=== PATIENT | female | born 1925 | race Caucasian/White ===

== ENCOUNTER 2016-05-20 15:32 | Emergency (ER) | payer MEDICARE ==
[~2016-05-20 15:32] MED LIST: *MAMMOGRAM; *WHEELCHAI; /ALEN70TA; /AUGM875TA; /PANT40TA; ACTONEL PO; ADVICOR PO; ALPH0.156; ALPHAGAN; ASPI325T; ATOR40TA PO; AZOP0.2S OU; BACTRIMDS PO; CENT1TAB PO; CIPRO; COLA100C2; COLA100C2 PO; COMB0.2S OU; DIGO0.12 PO; DRIS50002 PO; ELIQ5TAB PO; FISH100049 PO; FLAG500T; FOSAMAX70 PO; FURO40TA2 PO; GLUCOSE TEST; HCTZ25 PO; HYDROD25 PO; ICAPCAP; ICAPS PO; KLORCON10 PO; LANCMIS; LASI20TA; LASIX20 PO; LATANOPROST 0.005%; LIPITOR PO; LIPITOR10 PO; LOPR50TA; LOPR50TA PO; LOPRESS100 PO; LOPRESS50 PO; LOTENSIN PO; LOTREL; LOTREL PO; LOVAZA PO; MIACALCIN; NEXIUM40 PO; PHENERGAN; PROM12SU; THERGRAN; TIMO0.5S; TIMO0.5S3; TIMOPTIC; TRAV04OPD OU; TUSSIONEX PO; TYLE325T5 PO; UROCIT K; UROCIT PO; VICO5TAB; XALATAN; ZANT150T; ZANT150T PO; ZANTAC150 PO; ZITHROM250 PO; ZOCO10TA; ZOCOR PO; [UNRECOGNIZED DRUG - CODE]; [UNRECOGNIZED DRUG - OTHER]; [UNRECOGNIZED DRUG - OTHER]; [UNRECOGNIZED DRUG - REMARK]; lovaza
[2016-05-20] MEDS ORDERED: MORPHINE 2 MG/ML 1ML SYRINGE As Ordered ONE (16:18)
[2016-05-20] MEDS ORDERED: ONDANSETRON 4 MG ORAL DISINTEGRATING TAB (S0181) As Ordered ONE (16:18)
[2016-05-20 17:02] LABS: BASO % 0.2 % (0.0-1.0); EOS % 0.4 % (0.0-3.0); LARGE UNSTAINED CELL # 0.3 K/mm3 (0.0-0.4); LARGE UNSTAINED CELL % 2.1 % (0.0-4.0); LYMPH # 0.6 K/mm3 (1.5-4.5); LYMPH % 4.9 % (24.0-44.0); MEAN CORPUSCULAR HEMOGLOBIN 28.6 pg (27.0-33.0); MEAN CORPUSCULAR HGB CONC 32.5 g/dl (32.0-36.5); MEAN CORPUSCULAR VOLUME 87.7 fl (80.0-96.0); MONO # 1.1 K/mm3 (0.0-0.8); MONO % 8.5 % (0.0-5.0); PLATELET COUNT, AUTOMATED 343 k/mm3 (150-450); RED CELL DISTRIBUTION WIDTH 12.7 % (11.5-14.5)
[2016-05-20 17:15] LABS: ALBUMIN 2.9 GM/DL (3.2-5.2); ALBUMIN/GLOBULIN RATIO 0.83 (1.00-1.93); ALKALINE PHOSPHATASE 184 U/L (45-117); ALT/SGPT 29 U/L (12-78); ANION GAP 10 MEQ/L (8-16); AST/SGOT 24 U/L (15-37); BILIRUBIN,DIRECT 0.3 MG/DL (0.0-0.2); BILIRUBIN,TOTAL 0.8 MG/DL (0.2-1.0); BLOOD UREA NITROGEN 17 MG/DL (7-18); CALCIUM LEVEL 10.4 MG/DL (8.8-10.2); CARBON DIOXIDE LEVEL 23 MEQ/L (21-32); CHLORIDE LEVEL 108 MEQ/L (98-107); CREATININE FOR GFR 0.71 MG/DL (0.55-1.02); GLOMERULAR FILTRATION RATE > 60.0 (>32); GLUCOSE, FASTING 140 MG/DL (83-110); POTASSIUM SERUM 4.2 MEQ/L (3.5-5.1); SODIUM LEVEL 141 MEQ/L (136-145); TOTAL PROTEIN 6.4 GM/DL (6.4-8.2); URIC ACID 5.9 MG/DL (2.6-6.0)
[2016-05-20] MEDS ORDERED: traMADol 50 MG TAB As Ordered ONE (17:33)
[2016-05-20 18:51] LABS: ERYTHROCYTE SEDIMENTATION RATE 66 mm/hr (0-42)
--- NOTE | 2016-05-20 19:10 | REPUSA ---
CLINICAL HISTORY: Hand pain. COMMENTS: The bones are diffusely osteopenic. Moderate to severe degenerative changes are present at all bilateral PIP and DIP joints. Severe soft tissue swelling is present adjacent to the second LEFT proximal and middle phalanx. Dest ructive changes are noted at the second LEFT PIP joint. This may represent osteomyelitis and septic arthritis. Clinical correlation is recommended. There is no evidence of acute fracture or dislocation. IMPRESSION: Severe soft tissue swelling is present adjacent to the second LEFT proximal and middle phalanx. Dest ructive changes are noted at the second LEFT PIP joint. This may represent osteomyelitis and septic arthritis. Clinical correlation is recommended. The bones are diffusely osteopenic. Moderate to severe degenerative changes are present at all bilateral PIP and DIP joints.
--- NOTE | 2016-05-21 00:11 | EDDOCDS ---
Physician Documentation [facility] Name: Malu Castaneda Age: 89 yrs Sex: Female : 1925 Arrival Date: 05/20/2016 Time: 15:32 Bed 12 Private MD: Matthew Shelton A. Disposition: 05/20 20:20 Critical Care: Critical care not applicable. pc Disposition: 05/20/16 20:31 Transfer ordered to [facility]. Diagnosis are Chronic gout, Arthropathies in other specified diseases classified elsewhere, hand - bilateral hands at PIP joints, Osteomyelitis - suspected, left hand 2nd and 3rd PIP joints with subcutraneous air in distal forearm, Edema, unspecified - peripheral edema without CHF. - Reason for transfer: Higher level of care. - Accepting physician is Dr. Puga. - Condition is Stable. - Problem is new. - Symptoms are unchanged. HPI: 15:46 This 89 yrs old Female presents to ER via Walkin/Carried/Asstd with pc complaints of Leg Pain. 15:46 The history is obtained from the patient. She has developed multiple painful swollen pc joints, involving her hands and right knee, over the past week. Both legs have become very swollen since her diuretic was first discontinued and then restarted at half-dose a few weeks ago by her Medical Lab Specialist. She denies any SOB, PND, orthopnea or chest pain. She has a history of gout, per her EMR, with recent uric level of 10.6, X-rays of her left hand confirming the same and being started on prednisone 4 weeks ago. The patient is a vague historian and could not relay this information. The patient has been recently seen by Dr. Rodriguez. 15:46 At their worst, the symptoms were severe. In the emergency department, the symptoms are pc unchanged. Historical: - Allergies: Morphine ("makes me crazy"); - Home Meds: 1. multivitamin Oral tab 1 tablet daily 2. Colace 100 mg oral cap 1 cap 2 times per day 3. furosemide 20 mg oral tab 0.5 tab once daily sun 2 tabs daily 4. benazepril 40 mg oral tab 1 tab once daily 5. atorvastatin 40 mg oral tab 1 tab once daily 6. ranitidine HCl 150 mg Oral tab 1 tab 2 times per day 7. Vitamin D Oral 93202 unit weekly 8. ICaps [id number] gdbc-[id number]-unit oral TbER daily 9. spironolactone 25 mg Oral tab 0.5 tabs once daily 10. Azopt 1 % ophthalmic drps 1 drop twice a day 11. combigan 1 drop both eyes twice a day 12. Fish Oil 1,000 mg Oral cap twice a day 13. tramadol 50 mg Oral tab 1 tab Q 6 Hrs PRN 14. travatan 1 drop both eyes nightly 15. dorzolamide 2 % ophthalmic drop 1 drop twice a day 16. brimonidine 0.15 % ophthalmic drop 1 drop twice a day 17. Travatan Z 0.004 % ophthalmic drop 1 drop once daily nightly 18. timolol maleate 0.5 % Opht drpd 1 drop 2 times per day - PMHx: Arthritis; Atrial Fib; Diabetes - NIDDM: controlled; GERD; Glaucoma; Hypertension; Kidney stones; Gout; - PSHx: Cholecystectomy; Hysterectomy; Pacemaker Insertion; Back surgery; - The history from nurses notes was reviewed: but there are no nursing notes, or only partial notes available at the time of my charting. - Social history: Smoking status: Patient states was never smoker of tobacco. No barriers to communication noted, The patient speaks fluent [place]an, Speaks appropriately for age. - Family history: Not pertinent. - : The pt / caregiver states he / she is not on anticoagulants. Home medication list is obtained from the patient. - Hospitalizations: : No recent hospitalization is reported. - Exposure Risk Screening:: None identified. - Immunization history:: All immunizations up-to-date. - Social history:: the patient is a non-smoker, the patient does not drink alcohol. ROS: 15:46 All systems are negative except as listed. pc Exam: 15:46 General Appearance: alert, the patient is in moderate distress. pc 15:46 EENT: normal eye inspection, ears, nose and throat normal, pharynx normal, mucous membranes moist 15:46 Neck: The exam reveals no acute abnormalities. ROM is normal and painless. No nuchal rigidity is noted.. 15:46 Respiratory: no respiratory distress, normal breath sounds. 15:46 CVS: regular pulse rate, normal S1 and S2, no murmurs, strong peripheral pulses, irregularly irregular 15:46 Abdomen: soft, non-tender, no organomegaly, normal bowel sounds. 15:46 Back: normal inspection. 15:46 Skin: skin color is normal, warm, dry. 15:46 Extremities: grossly normal except: noted in the right leg and left le+ pitting edema to mid tibia , Joints: All joints are normal except the PIP of left little finger, PIP of left ring finger, PIP of left middle finger and PIP of left index finger displays pain at rest, painful range of motion, swelling, erythematous , the dorsal aspect of middle phalanx of right index finger and dorsal aspect of middle phalanx of right middle finger displays pain at rest, painful range of motion, swelling, erythematous , the right knee displays pain at rest, painful range of motion, swelling, erythema laterally. 15:46 Neuro: oriented x 3, cranial nerves normal as tested, no motor deficits, no sensory deficits. 15:46 Psych: normal mood. Vital Signs: 15:45 BP 136 / 110; Pulse 97; Resp 20; Pulse Ox 100% on R/A; Weight 68.04 kg / 150 lbs (R); pml Height 4 ft. 8 in. (142.24 cm); Pain 8/10; 15:51 Pulse 92 MON; Pulse Ox 97% ; pml 15:51 BP 169 / 77 (auto/); pml 16:06 Pulse 106 MON; Pulse Ox 96% ; pml 16:06 BP 168 / 72 (auto/); pml 16:09 Temp 98.8(O); pml 16:51 Pulse 88 MON; Pulse Ox 96% ; pml 16:51 BP 131 / 55 (auto/); pml 17:06 Pulse 94 MON; Pulse Ox 96% ; pml 17:06 BP 132 / 78 (auto/); pml 17:21 Pulse 88 MON; Pulse Ox 95% ; pml 17:21 BP 146 / 74 (auto/); pml 17:36 BP 163 / 73 (auto/); pml 17:36 Pulse 94 MON; Pulse Ox 96% ; pml 17:51 Pulse 98 MON; Pulse Ox 96% ; pml 17:51 BP 153 / 68 (auto/); pml 18:06 BP 150 / 68 (auto/); pml 18:06 Pulse 88 MON; pml 18:21 Pulse 84 MON; Pulse Ox 96% ; pml 18:21 BP 144 / 67 (auto/); pml 18:36 Pulse 78 MON; Pulse Ox 95% ; pml 18:36 BP 163 / 68 (auto/); pml 18:51 Pulse 78 MON; Pulse Ox 96% ; mlc 18:51 BP 174 / 76 (auto/); mlc 19:06 BP 162 / 65 (auto/); mlc 19:06 Pulse 82 MON; Pulse Ox 94% ; mlc 19:21 BP 161 / 72 (auto/); mlc 19:21 Pulse 90 MON; Pulse Ox 95% ; 19:36 BP 149 / 66 (auto/); jun 01:36 Pulse 84 MON; Pulse Ox 95% ; jun 01:51 BP 152 / 65 (auto/); jun 01:51 Pulse 82 MON; Pulse Ox 95% ; jun 02:06 BP 139 / 63 (auto/); jun 02:06 Pulse 84 MON; Pulse Ox 94% ; jun 02:21 BP 133 / 63 (auto/); jun 02:21 Pulse 84 MON; Pulse Ox 95% ; jun 02:36 BP 139 / 63 (auto/); jun 02:36 Pulse 86 MON; Pulse Ox 95% ; jun 02:51 BP 120 / 61 (auto/); jun 02:51 Pulse 86 MON; Pulse Ox 95% ; jun 03:21 BP 140 / 59 (auto/); jun 03:21 Pulse 82 MON; Pulse Ox 96% ; jun 03:36 BP 121 / 56 (auto/); jun 03:36 Pulse 78 MON; Resp 20 S; Temp 99.9(TE); Pulse Ox 96% ; jun 03:51 Pulse 74 MON; Pulse Ox 95% ; mlc 21:51 BP 114 / 53 (auto/); mlc 22:06 BP 127 / 61 (auto/); [facility] 22:06 Pulse 74 MON; Pulse Ox 95% ; [facility] 05/21 00:06 BP 142 / 65; Pulse 81; Resp 18; Temp 98.3; Pulse Ox 97% on R/A; Pain 5/10; mlc 05/20 15:45 Body Mass Index 33.63 (68.04 kg, 142.24 cm) pml MDM: 05/20 15:45 CBC with Diff Ordered. EDMS 15:45 MED Profile Ordered. EDMS 15:45 C Reactive Protein Ordered. EDMS 15:45 ESR Ordered. EDMS 15:45 Uric Acid Ordered. EDMS 15:46 Differential Diagnosis: polyarthropathy due to gout; peripheral edema; chronic AFib. pc Plan: labs, meds. 15:52 LIVER PROFILE Ordered. EDMS 15:52 BRAIN NATIURETIC PEPTIDE Ordered. EDMS 16:09 Ondansetron ODT Oral Disintegrating Tablet 4 mg PO once ordered. pc 16:09 morphine 2 mg Sub-Q once ordered. pc 16:13 Financial registration complete. [email or web address] 16:13 [facility] Payment Agreement was scanned into Oscar and attached to record. [email or web address] 17:15 CBC with Diff Reviewed. pc 17:29 MED Profile Reviewed. pc 17:29 C Reactive Protein Reviewed. pc 17:29 LIVER PROFILE Reviewed. pc 17:29 BRAIN NATIURETIC PEPTIDE Reviewed. pc 17:29 Uric Acid Reviewed. pc 17:31 Hand, Complete Ordered. EDMS 17:31 traMADol 50 mg PO once ordered. pc 17:31 ESR Reviewed. pc 17:32 Knee, Complete Ordered. EDMS 17:32 Chest, 2 View (pa\\E\\lat) Ordered. EDMS 18:59 CBC with Diff Reviewed. pc 18:59 ESR Reviewed. pc 20:20 Data reviewed: old medical records, vital signs, nurses notes, lab test results, all pc radiology studies and available results. Test interpretation: LAB - all labs as ordered have been reviewed, interpreted and considered in the overall management of the clinical presentation; X-RAY - interpreted by Radiologist and personally reviewed, 1 view chest no acute disease, Hand Both extensive gouty arthropathy, worse at the left 2nd and 3rd PIP joints, with subcutaneous air in distal left forearm at the wrist, possible osteomyelitis . The patient has been re-examined and re-evaluated. The patient's symptoms have mildly improved after treatment. Physician consultation: Dr. Yosvany Mitchell regarding patient's condition, and he advises that the subcutaneous air and joint destruction, with corresponding labs, requires a hand surgeon consult for possible debridement and advises transfer to [facility]. 20:20 Physician consultation: Dr. Puga was contacted at 20:27, regarding patient's pc condition, and he accepts in transfer to [facility]. Disposition: The historical points, examination findings, and any diagnostic results supporting the provided diagnosis, were discussed with the patient or legal guardian. The decision to transfer to the patient to another facility was explained, based on the need for a required specialist that [facility] does not immediately have available. Administered Medications: 16:09 CANCELLED (Other Intervention Used): morphine 2 mg IVP once pc 16:09 CANCELLED (Other Intervention Used): Ondansetron 4 mg IVP once pc 16:25 Not Given (Patient Refused): morphine 2 mg Sub-Q once pml 16:26 Not Given (Patient Refused): Ondansetron ODT Oral Disintegrating Tablet 4 mg PO once pml 17:35 Drug: traMADol 50 mg [tramadol 50 mg tablet (1 tabs)] Route: PO; pml Signatures: Dispatcher [employer] EDMS Clayton Sinha MD MD pc Lucia Gaming RN RN pml Azalia Raines RN RN [facility] Clare Keen, Reg Reg [email or web address] The chart was reviewed and I authenticate all verbal orders and agree with the evaluation and treatment provided.Corrections: (The following items were deleted from the chart) 15:52 15:47 LIVER PROFILE+LAB ordered. EDMS EDMS 15:52 15:47 B-Type NATIURETIC PEPTIDE+LAB ordered. EDMS EDMS 16:09 15:55 morphine 2 mg IVP once ordered. pc pc 16:09 15:55 Ondansetron 4 mg IVP once ordered. pc pc 16:26 15:45 Allergies: no known allergies; pml pml 16:31 15:44 IV Saline Lock ordered. pc pml Attachments: 16:13 [facility] Payment Agreement [email or web address]
--- NOTE | 2016-05-21 00:12 | EDDOCDS ---
Nurse's Notes [facility] Name: Malu Castaneda Age: 89 yrs Sex: Female : 1925 Arrival Date: 05/20/2016 Time: 15:32 Bed 12 Private MD: Matthew Shelton A. Diagnosis: Chronic gout;Arthropathies in other specified diseases classified elsewhere, hand-bilateral hands at PIP joints;Osteomyelitis-suspected, left hand 2nd and 3rd PIP joints with subcutraneous air in distal forearm;Edema, unspecified-peripheral edema without CHF Presentation: 05/20 15:34 Presenting complaint: Presenting complaint: EMS states: increased swelling to fingers pml and feet over last few days. states MD Rodriguez took pt off of her eliquis and her fluid pill about 2 weeks ago. added back in half her fluid pill shortly thereafter. 15:42 Adult Sepsis Screening: The patient does not have new or worsening altered mentation. pml Patient's respiratory rate is less than 22. Systolic blood pressure is greater than 100. Patient has a qSOFA score of 1- Negative Sepsis Screen. Suicide/Homicide risk assessment- the patient denies having any suicidal and/or homicidal ideations and does not present with any other emotional, behavioral or mental health complaints. Status: Patient is not a dispatcher service or dependent. Transition of care: patient was not received from another setting of care. 15:42 Acuity: [place] Level 3 pml 15:42 Method Of Arrival: Walkin/Carried/Asstd pml Triage Assessment: 15:45 General: Appears in no apparent distress, Behavior is appropriate for age, cooperative. pml Pain: Location: posterior aspect of right knee Pain currently is 8 out of 10 on a pain scale. The patient is triaged at the bedside. See Assessment in Nurses Notes section of ED record. Neurological: Level of Consciousness is awake, alert, Oriented to person, place, time. Cardiovascular: Capillary refill < 3 seconds. Cardiovascular: Rhythm is atrial fibrillation. Respiratory: Airway is patent Respiratory effort is even, unlabored. GI: Abdomen is non- distended. Derm: Skin is flushed, on dorsal aspect of middle phalanx of right index finger, dorsal aspect of middle phalanx of right middle finger, dorsal aspect of middle phalanx of left index finger, dorsal aspect of middle phalanx of left middle finger, dorsal aspect of middle phalanx of left ring finger and dorsal aspect of middle phalanx of left little finger Skin temperature is warm on right hand and left hand Swollen area noted that is + 2 pitting edema bilateral lower extremities below knee. non pitting edema at bilateral distal fingers near joints. Historical: - Allergies: Morphine ("makes me crazy"); - Home Meds: 1. multivitamin Oral tab 1 tablet daily 2. Colace 100 mg oral cap 1 cap 2 times per day 3. furosemide 20 mg oral tab 0.5 tab once daily sun 2 tabs daily 4. benazepril 40 mg oral tab 1 tab once daily 5. atorvastatin 40 mg oral tab 1 tab once daily 6. ranitidine HCl 150 mg Oral tab 1 tab 2 times per day 7. Vitamin D Oral 84935 unit weekly 8. ICaps [id number] fzkm-[id number]-ws-unit oral TbER daily 9. spironolactone 25 mg Oral tab 0.5 tabs once daily 10. Azopt 1 % ophthalmic drps 1 drop twice a day 11. combigan 1 drop both eyes twice a day 12. Fish Oil 1,000 mg Oral cap twice a day 13. tramadol 50 mg Oral tab 1 tab Q 6 Hrs PRN 14. travatan 1 drop both eyes nightly 15. dorzolamide 2 % ophthalmic drop 1 drop twice a day 16. brimonidine 0.15 % ophthalmic drop 1 drop twice a day 17. Travatan Z 0.004 % ophthalmic drop 1 drop once daily nightly 18. timolol maleate 0.5 % Opht drpd 1 drop 2 times per day - PMHx: Arthritis; Atrial Fib; Diabetes - NIDDM: controlled; GERD; Glaucoma; Hypertension; Kidney stones; Gout; - PSHx: Cholecystectomy; Hysterectomy; Pacemaker Insertion; Back surgery; - The history from nurses notes was reviewed: but there are no nursing notes, or only partial notes available at the time of my charting. - Social history: Smoking status: Patient states was never smoker of tobacco. No barriers to communication noted, The patient speaks fluent Faroese, Speaks appropriately for age. - Family history: Not pertinent. - : The pt / caregiver states he / she is not on anticoagulants. Home medication list is obtained from the patient. - Hospitalizations: : No recent hospitalization is reported. - Exposure Risk Screening:: None identified. - Immunization history:: All immunizations up-to-date. - Social history:: the patient is a non-smoker, the patient does not drink alcohol. Screenin:48 Screening information is obtained from the patient. Fall risk: No risks identified. pml Assistance ADL's: requires no assistance with activities of daily living. Abuse/DV Screen: The patient / caregiver reports he/she is: not in a situation that causes fear, pain or injury. Nutritional screening: No deficits noted. Advance Directives: Currently, there is no health care proxy. home support is adequate. Assessment: 15:48 General: see triage note. pml 16:32 General: Appears in no apparent distress, Behavior is appropriate for age, cooperative. pml Pain: Location: right knee. Neurological: Level of Consciousness is awake, alert, Oriented to person, place, time. Cardiovascular: Capillary refill < 3 seconds. Respiratory: Airway is patent Respiratory effort is even, unlabored. Derm: Skin is pink, warm & dry. 17:00 Adult Sepsis Screening: The patient does not have new or worsening altered mentation. pml Patient's respiratory rate is less than 22. Systolic blood pressure is greater than 100. Patient has a qSOFA score of 0- Negative Sepsis Screen. 17:35 General: resting on stretcher, resps easy and unlabored, skin p/w/d. swelling and pml redness remains unchanged from prior documentation. atrial fib on monitor in 80s. family at bedside. medicated for leg pain 12/21. 18:43 General: Appears in no apparent distress, Behavior is appropriate for age, cooperative. pml Pain: Location: right knee. Neurological: Level of Consciousness is awake, alert, Oriented to person, place, time. Cardiovascular: Capillary refill < 3 seconds. Respiratory: Airway is patent Respiratory effort is even, unlabored. Derm: Skin is pink, warm & dry. 19:25 General: Appears in no apparent distress, comfortable, Behavior is cooperative. mlc Neurological: Level of Consciousness is awake, alert, Oriented to person, place, time. Cardiovascular: Edema is 2+ to left foot, left toes, right foot and right toes. Respiratory: Airway is patent Respiratory effort is even, unlabored, Respiratory pattern is regular. Derm: Skin is red, on right hand and left hand. 20:44 Reassessment: Patient appears in no apparent distress at this time. pt offers no mlc complaints. pt taking own medication per Dr. Sinha. . 21:49 General: Appears in no apparent distress, comfortable, Behavior is cooperative, joy pleasant. Neurological: Level of Consciousness is awake, alert, obeys commands, Oriented to person, place, time, Speech is normal. Cardiovascular: Heart tones S1 S2 present. Respiratory: No deficits noted. Airway is patent Respiratory effort is even, unlabored, Respiratory pattern is regular, symmetrical. Derm: Skin is pink, warm & dry. 22:12 Reassessment: Patient appears in no apparent distress at this time. no changes since mlc prior. resp easy/unlabored. family at bedside. 22:59 General: Appears in no apparent distress, comfortable, to be sleeping. awakens easily. mlc Neurological: Level of Consciousness is awake, alert, Oriented to person, place, time. Respiratory: Airway is patent Respiratory effort is even, unlabored, Respiratory pattern is regular. 05/21 00:06 General: Appears in no apparent distress, comfortable, Behavior is cooperative. mlc General: Family at bedside. pt offers no complaints. . Pain: Pain currently is 5 out of 10 on a pain scale. Neurological: Level of Consciousness is awake, alert, Oriented to person, place, time. Respiratory: Airway is patent Respiratory effort is even, unlabored, Respiratory pattern is regular. Vital Signs: 05/20 15:45 BP 136 / 110; Pulse 97; Resp 20; Pulse Ox 100% on R/A; Weight 68.04 kg (R); Height 4 pml ft. 8 in. (142.24 cm); Pain 8/10; 15:51 Pulse 92 MON; Pulse Ox 97% ; pml 15:51 BP 169 / 77 (auto/); pml 16:06 Pulse 106 MON; Pulse Ox 96% ; pml 16:06 BP 168 / 72 (auto/); pml 16:09 Temp 98.8(O); pml 16:51 Pulse 88 MON; Pulse Ox 96% ; pml 16:51 BP 131 / 55 (auto/); pml 17:06 Pulse 94 MON; Pulse Ox 96% ; pml 17:06 BP 132 / 78 (auto/); pml 17:21 Pulse 88 MON; Pulse Ox 95% ; pml 17:21 BP 146 / 74 (auto/); pml 17:36 BP 163 / 73 (auto/); pml 17:36 Pulse 94 MON; Pulse Ox 96% ; pml 17:51 Pulse 98 MON; Pulse Ox 96% ; pml 17:51 BP 153 / 68 (auto/); pml 18:06 BP 150 / 68 (auto/); pml 18:06 Pulse 88 MON; pml 18:21 Pulse 84 MON; Pulse Ox 96% ; pml 18:21 BP 144 / 67 (auto/); pml 18:36 Pulse 78 MON; Pulse Ox 95% ; pml 18:36 BP 163 / 68 (auto/); pml 18:51 Pulse 78 MON; Pulse Ox 96% ; mlc 18:51 BP 174 / 76 (auto/); mlc 19:06 BP 162 / 65 (auto/); mlc 19:06 Pulse 82 MON; Pulse Ox 94% ; mlc 19:21 BP 161 / 72 (auto/); mlc 19:21 Pulse 90 MON; Pulse Ox 95% ; mlc 19:36 BP 149 / 66 (auto/); jun 01:36 Pulse 84 MON; Pulse Ox 95% ; jun 01:51 BP 152 / 65 (auto/); jun 01:51 Pulse 82 MON; Pulse Ox 95% ; jun 02:06 BP 139 / 63 (auto/); jun 02:06 Pulse 84 MON; Pulse Ox 94% ; jun 02:21 BP 133 / 63 (auto/); jun 02:21 Pulse 84 MON; Pulse Ox 95% ; jun 02:36 BP 139 / 63 (auto/); jun 02:36 Pulse 86 MON; Pulse Ox 95% ; jun 02:51 BP 120 / 61 (auto/); jun 02:51 Pulse 86 MON; Pulse Ox 95% ; jun 03:21 BP 140 / 59 (auto/); jun 03:21 Pulse 82 MON; Pulse Ox 96% ; jun 03:36 BP 121 / 56 (auto/); jun 03:36 Pulse 78 MON; Resp 20 S; Temp 99.9(TE); Pulse Ox 96% ; jun 03:51 Pulse 74 MON; Pulse Ox 95% ; mlc :51 BP 114 / 53 (auto/); mlc 22:06 BP 127 / 61 (auto/); mlc :06 Pulse 74 MON; Pulse Ox 95% ; mlc 05/21 00:06 BP 142 / 65; Pulse 81; Resp 18; Temp 98.3; Pulse Ox 97% on R/A; Pain 5/10; mlc 05/20 15:45 Body Mass Index 33.63 (68.04 kg, 142.24 cm) pml Vitals: 05/20 15:45 Log In Time N/A - ambulance arrival. pml ED Course: 15:32 Patient visited by Renuka Rucker PCA. ar3 15:32 Lucia Gaming,ROCHELLE is Primary Nurse. ar3 15:32 Matthew Shelton is Private Physician. ar3 15:32 Patient moved to Waiting ar3 15:32 Patient moved to 12 ar3 15:38 Clayton Sinha MD is Attending Physician. pc 15:41 Patient visited by Clayton Sinha MD. pc 15:44 Triage Initiated pml 15:48 The patient / caregiver is instructed regarding the plan of care and ED course. Patient pml has correct armband on for positive identification. Placed in gown. Bed in low position. Call light in reach. Side rails up X2. monitoring engineer on. Pulse ox on. NIBP on. 16:13 [facility] Payment Agreement was scanned into [employer] and attached to record. [id number] 16:32 Patient visited by Lucia Gaming RN. pml 17:33 Patient visited by Clayton Sinha MD. pc 17:37 Patient visited by Lucia Gaming RN. pml 18:07 Patient visited by Lidya Mims PCA. ct3 18:44 Patient visited by Lucia Gaming RN. pml 19:06 Patient visited by Justin Rodriguez PCA. kb5 19:06 Azalia Raines RN is Primary Nurse. mlc 19:17 Hand, Complete Returned. EDMS 19:28 Patient visited by Azalia Raines RN. mlc 20:04 Primary Nurse role handed off by Lucia Gaming,ROCHELLE jmv 20:49 Patient visited by Azalia Raines RN. mlc 22:03 Patient visited by Justin Rodriguez PCA. kb5 22:13 Patient visited by Azalia Raines RN. mlc 23:00 No IV's were initiated during this patient's visit. No procedures done that require mlc assistance. Administered Medications: 16:09 CANCELLED (Other Intervention Used): morphine 2 mg IVP once pc 16:09 CANCELLED (Other Intervention Used): Ondansetron 4 mg IVP once pc 16:25 Not Given (Patient Refused): morphine 2 mg Sub-Q once pml 16:26 Not Given (Patient Refused): Ondansetron ODT Oral Disintegrating Tablet 4 mg PO once pml 17:35 Drug: traMADol 50 mg [tramadol 50 mg tablet (1 tabs)] Route: PO; pml Order Results: Lab Order: CBC with Diff; SPEC'M 05/20/16 16:34 Test: WHITE BLOOD COUNT; Value: 13.0; Range: 4.0-10.0; Abnormal: Above high normal; Units: K/mm3; Status: F Test: RED BLOOD COUNT; Value: 4.31; Range: 4.00-5.40; Units: M/mm3; Status: F Test: HEMOGLOBIN; Value: 12.3; Range: 12.0-16.0; Units: g/dl; Status: F Test: HEMATOCRIT; Value: 37.8; Range: 36.0-47.0; Units: %; Status: F Test: MEAN CORPUSCULAR VOLUME; Value: 87.7; Range: 80.0-96.0; Units: fl; Status: F Test: MEAN CORPUSCULAR HEMOGLOBIN; Value: 28.6; Range: 27.0-33.0; Units: pg; Status: F Test: MEAN CORPUSCULAR HGB CONC; Value: 32.5; Range: 32.0-36.5; Units: g/dl; Status: F Test: RED CELL DISTRIBUTION WIDTH; Value: 12.7; Range: 11.5-14.5; Units: %; Status: F Test: PLATELET COUNT, AUTOMATED; Value: 343; Range: 150-450; Units: k/mm3; Status: F Test: NEUTROPHILS %; Value: 84.0; Range: 36.0-66.0; Abnormal: Above high normal; Units: %; Status: F Test: LYMPH %; Value: 4.9; Range: 24.0-44.0; Abnormal: Below low normal; Units: %; Status: F Test: MONO %; Value: 8.5; Range: 0.0-5.0; Abnormal: Above high normal; Units: %; Status: F Test: EOS %; Value: 0.4; Range: 0.0-3.0; Units: %; Status: F Test: BASO %; Value: 0.2; Range: 0.0-1.0; Units: %; Status: F Test: LARGE UNSTAINED CELL %; Value: 2.1; Range: 0.0-4.0; Units: %; Status: F Test: NEUTROPHILS #; Value: 11.0; Range: 1.8-7.7; Abnormal: Above high normal; Units: K/mm3; Status: F Test: LYMPH #; Value: 0.6; Range: 1.5-4.5; Abnormal: Below low normal; Units: K/mm3; Status: F Test: MONO #; Value: 1.1; Range: 0.0-0.8; Abnormal: Above high normal; Units: K/mm3; Status: F Test: EOS #; Value: 0.0; Range: 0.0-0.50; Units: K/mm3; Status: F Test: BASO #; Value: 0.0; Range: 0.0-0.2; Units: K/mm3; Status: F Test: LARGE UNSTAINED CELL #; Value: 0.3; Range: 0.0-0.4; Units: K/mm3; Status: F Lab Order: [facility] Profile; [facility] 05/20/16 16:34 Test: GLUCOSE, FASTING; Value: 140; Range: 83-110; Abnormal: Above high normal; Units: MG/DL; Status: F Test: BLOOD UREA NITROGEN; Value: 17; Range: 7-18; Units: MG/DL; Status: F Test: CREATININE FOR GFR; Value: 0.71; Range: 0.55-1.02; Units: MG/DL; Status: F Test: GLOMERULAR FILTRATION RATE; Value: > 60.0; Range: >32; Status: F Test: SODIUM LEVEL; Value: 141; Range: 136-145; Units: MEQ/L; Status: F Test: POTASSIUM SERUM; Value: 4.2; Range: 3.5-5.1; Units: MEQ/L; Status: F Test: CHLORIDE LEVEL; Value: 108; Range: 98-107; Abnormal: Above high normal; Units: MEQ/L; Status: F Test: CARBON DIOXIDE LEVEL; Value: 23; Range: 21-32; Units: MEQ/L; Status: F Test: ANION GAP; Value: 10; Range: 8-16; Units: MEQ/L; Status: F Test: CALCIUM LEVEL; Value: 10.4; Range: 8.8-10.2; Abnormal: Above high normal; Units: MG/DL; Status: F Test Note: ; Units are mL/min/1.73 m2 Chronic Kidney Disease Staging per NKF: Stage I & II GFR >=60 Normal to Mildly Decreased Stage III GFR 30-59 Moderately Decreased Stage IV GFR 15-29 Severely Decreased Stage V GFR <15 Very Little GFR Left ESRD GFR <15 on STRATEGY CONSULTANT Lab Order: C Reactive Protein; [facility] 05/20/16 16:34 Test: C REACTIVE PROTEIN QUANTITATIV; Value: 17.00; Range: 0.00-0.30; Abnormal: Above high normal; Units: MG/DL; Status: F Lab Order: ESR; [facility] 05/20/16 16:34 Test: ERYTHROCYTE SEDIMENTATION RATE; Value: 66; Range: 0-42; Abnormal: Above high normal; Units: mm/hr; Status: F Lab Order: Uric Acid; [facility] 05/20/16 16:34 Test: URIC ACID; Value: 5.9; Range: 2.6-6.0; Units: MG/DL; Status: F Lab Order: LIVER PROFILE; [facility] 05/20/16 16:34 Test: AST/SGOT; Value: 24; Range: 15-37; Units: U/L; Status: F Test: ALT/SGPT; Value: 29; Range: 12-78; Units: U/L; Status: F Test: ALKALINE PHOSPHATASE; Value: 184; Range: 45-117; Abnormal: Above high normal; Units: U/L; Status: F Test: BILIRUBIN,TOTAL; Value: 0.8; Range: 0.2-1.0; Units: MG/DL; Status: F Test: BILIRUBIN,DIRECT; Value: 0.3; Range: 0.0-0.2; Abnormal: Above high normal; Units: MG/DL; Status: F Test: TOTAL PROTEIN; Value: 6.4; Range: 6.4-8.2; Units: GM/DL; Status: F Test: ALBUMIN; Value: 2.9; Range: 3.2-5.2; Abnormal: Below low normal; Units: GM/DL; Status: F Test: ALBUMIN/GLOBULIN RATIO; Value: 0.83; Range: 1.00-1.93; Abnormal: Below low normal; Status: F Lab Order: BRAIN NATIURETIC PEPTIDE; SPEC'Noemy 05/20/16 16:34 Test: BRAIN NATRIURETIC PEPTIDE; Value: 457; Range: <100; Abnormal: Above high normal; Units: PG/ML; Status: F Radiology Order: Hand, Complete Test: Hand, Complete REASON FOR EXAMINATION: Deformity/Swelling; ; CLINICAL HISTORY: Hand pain.; COMMENTS:; The bones are diffusely osteopenic.; Moderate to severe degenerative changes are present at all bilateral PIP and DIP joints.; Severe soft tissue swelling is present adjacent to the second LEFT proximal and middle phalanx. Dest; ructive changes are noted at the second LEFT PIP joint. This may represent osteomyelitis and septic; arthritis. Clinical correlation is recommended.; There is no evidence of acute fracture or dislocation.; IMPRESSION:; Severe soft tissue swelling is present adjacent to the second LEFT proximal and middle phalanx. Dest; ructive changes are noted at the second LEFT PIP joint. This may represent osteomyelitis and septic; arthritis. Clinical correlation is recommended.; The bones are diffusely osteopenic.; Moderate to severe degenerative changes are present at all bilateral PIP and DIP joints.; ; ; Outcome: 20:31 ER care complete, transfer ordered by Provider. pc 21:46 Admission hand-off: Report called to Maureen Kramer RN [facility]. may 23:00 No special radiology studies were completed. [facility] [place] Discharge Assessment: patient administered narcotics - yes. [facility] [place] [facility] or transferred to another facility. The following High Risk Discharge criteria are identified: None. Transferred to [facility]. 05/21 00:06 [facility] report to accompanying personnel Velma Diaz, EMT and Jethro Andrews EMT. Condition: stable. Property :Personal belongings accompany Pt. 00:10 Patient left the [place]. [facility] Signatures: Dispatcher [employer] EDMS Clayton Sinha MD MD pc Newman, Jill New, RN RN jan Bancroft, Kristopher, CORTEZ RESEARCH PROFESSIONAL kb5 Renuka Rucker, RESEARCH PROFESSIONAL RESEARCH PROFESSIONAL ar3 Prasanna, Lidya, RESEARCH PROFESSIONAL RESEARCH PROFESSIONAL ct3 Lucia Gaming,RN RN pml Azalia Raines,RN RN mlc Clare Keen, Reg Reg [id number] Ward, Saran, RESEARCH PROFESSIONAL RESEARCH PROFESSIONAL jmv Corrections: (The following items were deleted from the chart) 05/20 15:44 15:34 Presenting complaint: pml pml 16:26 15:45 Allergies: no known allergies; pml pml MTDD
--- NOTE | 2016-05-21 06:49 | REP ---
Right knee series: Five views. History: Deformity and swelling. Findings: There is advanced three compartment osteoarthritis. Diffuse osteoporosis is noted. Chondrocalcinosis is seen medially and laterally. There is fullness in the suprapatellar bursa suggestive of a joint effusion. No fracture is seen. Impression: Diffuse osteoporosis. Advanced osteoarthritis. Joint effusion. No fracture or other acute bony abnormality visible. Signed by Arian Hartmann MD 05/21/2016 07:36 A
--- NOTE | 2016-05-21 07:29 | REP ---
Chest x-ray: Two views. History: CHF. Comparison chest x-ray July 22, 2015. Findings: A unipolar pacemaker remains in the right heart via the left subclavian region. Lumbar spine fusion hardware is seen along with clips in the right upper quadrant. EKG electrodes are noted. Mildly prominent heart is seen as before. No infiltrate or effusion is noted today. Pulmonary vasculature is not increased. The frontal radiograph is somewhat overexposed. Impression: Mild cardiomegaly with pacemaker. Otherwise no acute disease. Signed by Arian Hartmann MD 05/21/2016 07:37 A
--- NOTE | 2016-05-23 12:07 | EDDOCDS ---
Physician Documentation [facility] Name: Malu Castaneda Age: 89 yrs Sex: Female : 1925 Arrival Date: 05/20/2016 Time: 15:32 Bed 12 Private MD: Matthew Shelton A. Disposition: 05/20 20:20 Critical Care: Critical care not applicable. pc Disposition: 05/20/16 20:31 Transfer ordered to [facility]. Diagnosis are Chronic gout, Arthropathies in other specified diseases classified elsewhere, hand - bilateral hands at PIP joints, Osteomyelitis - suspected, left hand 2nd and 3rd PIP joints with subcutraneous air in distal forearm, Edema, unspecified - peripheral edema without CHF. - Reason for transfer: Higher level of care. - Accepting physician is Dr. Puga. - Condition is Stable. - Problem is new. - Symptoms are unchanged. HPI: 15:46 This 89 yrs old Female presents to ER via Walkin/Carried/Asstd with pc complaints of Leg Pain. 15:46 The history is obtained from the patient. She has developed multiple painful swollen pc joints, involving her hands and right knee, over the past week. Both legs have become very swollen since her diuretic was first discontinued and then restarted at half-dose a few weeks ago by her Design Director. She denies any SOB, PND, orthopnea or chest pain. She has a history of gout, per her EMR, with recent uric level of 10.6, X-rays of her left hand confirming the same and being started on prednisone 4 weeks ago. The patient is a vague historian and could not relay this information. The patient has been recently seen by Dr. Rodriguez. 15:46 At their worst, the symptoms were severe. In the emergency department, the symptoms are pc unchanged. Historical: - Allergies: Morphine ("makes me crazy"); - Home Meds: 1. multivitamin Oral tab 1 tablet daily 2. Colace 100 mg oral cap 1 cap 2 times per day 3. furosemide 20 mg oral tab 0.5 tab once daily sun 2 tabs daily 4. benazepril 40 mg oral tab 1 tab once daily 5. atorvastatin 40 mg oral tab 1 tab once daily 6. ranitidine HCl 150 mg Oral tab 1 tab 2 times per day 7. Vitamin D Oral 11425 unit weekly 8. ICaps 3,188-3-926-75 ztgl-fn-xp-unit oral TbER daily 9. spironolactone 25 mg Oral tab 0.5 tabs once daily 10. Azopt 1 % ophthalmic drps 1 drop twice a day 11. combigan 1 drop both eyes twice a day 12. Fish Oil 1,000 mg Oral cap twice a day 13. tramadol 50 mg Oral tab 1 tab Q 6 Hrs PRN 14. travatan 1 drop both eyes nightly 15. dorzolamide 2 % ophthalmic drop 1 drop twice a day 16. brimonidine 0.15 % ophthalmic drop 1 drop twice a day 17. Travatan Z 0.004 % ophthalmic drop 1 drop once daily nightly 18. timolol maleate 0.5 % Opht drpd 1 drop 2 times per day - PMHx: Arthritis; Atrial Fib; Diabetes - NIDDM: controlled; GERD; Glaucoma; Hypertension; Kidney stones; Gout; - PSHx: Cholecystectomy; Hysterectomy; Pacemaker Insertion; Back surgery; - The history from nurses notes was reviewed: but there are no nursing notes, or only partial notes available at the time of my charting. - Social history: Smoking status: Patient states was never smoker of tobacco. No barriers to communication noted, The patient speaks fluent Montenegrin, Speaks appropriately for age. - Family history: Not pertinent. - : The pt / caregiver states he / she is not on anticoagulants. Home medication list is obtained from the patient. - Hospitalizations: : No recent hospitalization is reported. - Exposure Risk Screening:: None identified. - Immunization history:: All immunizations up-to-date. - Social history:: the patient is a non-smoker, the patient does not drink alcohol. ROS: 15:46 All systems are negative except as listed. pc Exam: 15:46 General Appearance: alert, the patient is in moderate distress. pc 15:46 EENT: normal eye inspection, ears, nose and throat normal, pharynx normal, mucous membranes moist 15:46 Neck: The exam reveals no acute abnormalities. ROM is normal and painless. No nuchal rigidity is noted.. 15:46 Respiratory: no respiratory distress, normal breath sounds. 15:46 CVS: regular pulse rate, normal S1 and S2, no murmurs, strong peripheral pulses, irregularly irregular 15:46 Abdomen: soft, non-tender, no organomegaly, normal bowel sounds. 15:46 Back: normal inspection. 15:46 Skin: skin color is normal, warm, dry. 15:46 Extremities: grossly normal except: noted in the right leg and left le+ pitting edema to mid tibia , Joints: All joints are normal except the PIP of left little finger, PIP of left ring finger, PIP of left middle finger and PIP of left index finger displays pain at rest, painful range of motion, swelling, erythematous , the dorsal aspect of middle phalanx of right index finger and dorsal aspect of middle phalanx of right middle finger displays pain at rest, painful range of motion, swelling, erythematous , the right knee displays pain at rest, painful range of motion, swelling, erythema laterally. 15:46 Neuro: oriented x 3, cranial nerves normal as tested, no motor deficits, no sensory deficits. 15:46 Psych: normal mood. Vital Signs: 15:45 BP 136 / 110; Pulse 97; Resp 20; Pulse Ox 100% on R/A; Weight 68.04 kg / 150 lbs (R); pml Height 4 ft. 8 in. (142.24 cm); Pain 8/10; 15:51 Pulse 92 MON; Pulse Ox 97% ; pml 15:51 BP 169 / 77 (auto/); pml 16:06 Pulse 106 MON; Pulse Ox 96% ; pml 16:06 BP 168 / 72 (auto/); pml 16:09 Temp 98.8(O); pml 16:51 Pulse 88 MON; Pulse Ox 96% ; pml 16:51 BP 131 / 55 (auto/); pml 17:06 Pulse 94 MON; Pulse Ox 96% ; pml 17:06 BP 132 / 78 (auto/); pml 17:21 Pulse 88 MON; Pulse Ox 95% ; pml 17:21 BP 146 / 74 (auto/); pml 17:36 BP 163 / 73 (auto/); pml 17:36 Pulse 94 MON; Pulse Ox 96% ; pml 17:51 Pulse 98 MON; Pulse Ox 96% ; pml 17:51 BP 153 / 68 (auto/); pml 18:06 BP 150 / 68 (auto/); pml 18:06 Pulse 88 MON; pml 18:21 Pulse 84 MON; Pulse Ox 96% ; pml 18:21 BP 144 / 67 (auto/); pml 18:36 Pulse 78 MON; Pulse Ox 95% ; pml 18:36 BP 163 / 68 (auto/); pml 18:51 Pulse 78 MON; Pulse Ox 96% ; mlc 18:51 BP 174 / 76 (auto/); mlc 19:06 BP 162 / 65 (auto/); mlc 19:06 Pulse 82 MON; Pulse Ox 94% ; mlc 19:21 BP 161 / 72 (auto/); mlc 19:21 Pulse 90 MON; Pulse Ox 95% ; 19:36 BP 149 / 66 (auto/); jun 01:36 Pulse 84 MON; Pulse Ox 95% ; jun 01:51 BP 152 / 65 (auto/); jun 01:51 Pulse 82 MON; Pulse Ox 95% ; jun 02:06 BP 139 / 63 (auto/); jun 02:06 Pulse 84 MON; Pulse Ox 94% ; jun 02:21 BP 133 / 63 (auto/); jun 02:21 Pulse 84 MON; Pulse Ox 95% ; jun 02:36 BP 139 / 63 (auto/); jun 02:36 Pulse 86 MON; Pulse Ox 95% ; jun 02:51 BP 120 / 61 (auto/); jun 02:51 Pulse 86 MON; Pulse Ox 95% ; jun 03:21 BP 140 / 59 (auto/); jun 03:21 Pulse 82 MON; Pulse Ox 96% ; jun 03:36 BP 121 / 56 (auto/); jun 03:36 Pulse 78 MON; Resp 20 S; Temp 99.9(TE); Pulse Ox 96% ; jun 03:51 Pulse 74 MON; Pulse Ox 95% ; mlc 21:51 BP 114 / 53 (auto/); mlc 22:06 BP 127 / 61 (auto/); [facility] [place] 22:06 Pulse 74 MON; Pulse Ox 95% ; [facility] [place] 05/21 00:06 BP 142 / 65; Pulse 81; Resp 18; Temp 98.3; Pulse Ox 97% on R/A; Pain 5/10; mlc 05/20 15:45 Body Mass Index 33.63 (68.04 kg, 142.24 cm) pml MDM: 05/20 15:45 CBC with Diff Ordered. EDMS 15:45 MED Profile Ordered. EDMS 15:45 C Reactive Protein Ordered. EDMS 15:45 ESR Ordered. EDMS 15:45 Uric Acid Ordered. EDMS 15:46 Differential Diagnosis: polyarthropathy due to gout; peripheral edema; chronic AFib. pc Plan: labs, meds. 15:52 LIVER PROFILE Ordered. EDMS 15:52 BRAIN NATIURETIC PEPTIDE Ordered. EDMS 16:09 Ondansetron ODT Oral Disintegrating Tablet 4 mg PO once ordered. pc 16:09 morphine 2 mg Sub-Q once ordered. pc 16:13 Financial registration complete. [email or web address] 16:13 [facility] Payment Agreement was scanned into [employer] and attached to record. ks16 17:15 CBC with Diff Reviewed. pc 17:29 MED Profile Reviewed. pc 17:29 C Reactive Protein Reviewed. pc 17:29 LIVER PROFILE Reviewed. pc 17:29 BRAIN NATIURETIC PEPTIDE Reviewed. pc 17:29 Uric Acid Reviewed. pc 17:31 Hand, Complete Ordered. EDMS 17:31 traMADol 50 mg PO once ordered. pc 17:31 ESR Reviewed. pc 17:32 Knee, Complete Ordered. EDMS 17:32 Chest, 2 View (pa\\E\\lat) Ordered. EDMS 18:59 CBC with Diff Reviewed. pc 18:59 ESR Reviewed. pc 20:20 Data reviewed: old medical records, vital signs, nurses notes, lab test results, all pc radiology studies and available results. Test interpretation: LAB - all labs as ordered have been reviewed, interpreted and considered in the overall management of the clinical presentation; X-RAY - interpreted by Radiologist and personally reviewed, 1 view chest no acute disease, Hand Both extensive gouty arthropathy, worse at the left 2nd and 3rd PIP joints, with subcutaneous air in distal left forearm at the wrist, possible osteomyelitis . The patient has been re-examined and re-evaluated. The patient's symptoms have mildly improved after treatment. Physician consultation: Dr. Yosvany Mitchell regarding patient's condition, and he advises that the subcutaneous air and joint destruction, with corresponding labs, requires a hand surgeon consult for possible debridement and advises transfer to [facility]. 20:20 Physician consultation: Dr. Puga was contacted at 20:27, regarding patient's pc condition, and he accepts in transfer to [facility]. Disposition: The historical points, examination findings, and any diagnostic results supporting the provided diagnosis, were discussed with the patient or legal guardian. The decision to transfer to the patient to another facility was explained, based on the need for a required specialist that [facility] does not immediately have available. Administered Medications: 16:09 CANCELLED (Other Intervention Used): morphine 2 mg IVP once pc 16:09 CANCELLED (Other Intervention Used): Ondansetron 4 mg IVP once pc 16:25 Not Given (Patient Refused): morphine 2 mg Sub-Q once pml 16:26 Not Given (Patient Refused): Ondansetron ODT Oral Disintegrating Tablet 4 mg PO once pml 17:35 Drug: traMADol 50 mg [tramadol 50 mg tablet (1 tabs)] Route: PO; pml Signatures: Dispatcher [employer] EDMS Clayton Sinha MD MD pc Lucia Gaming RN RN pml Azalia Raines RN RN [facility] [place] Clare Keen, Reg Reg [email or web address] The chart was reviewed and I authenticate all verbal orders and agree with the evaluation and treatment provided.Corrections: (The following items were deleted from the chart) 15:52 15:47 LIVER PROFILE+LAB ordered. EDMS EDMS 15:52 15:47 B-Type NATIURETIC PEPTIDE+LAB ordered. EDMS EDMS 16:09 15:55 morphine 2 mg IVP once ordered. pc pc 16:09 15:55 Ondansetron 4 mg IVP once ordered. pc pc 16:26 15:45 Allergies: no known allergies; pml pml 16:31 15:44 IV Saline Lock ordered. pc pml Attachments: 16:13 [facility] Payment Agreement [email or web address] Chart Complete MTDD
--- NOTE | 2016-05-23 12:07 | EDDOCDS ---
Physician Documentation [facility] Name: Malu Castaneda Age: 89 yrs Sex: Female : 1925 Arrival Date: 05/20/2016 Time: 15:32 Bed 12 Private MD: Matthew Shelton A. Disposition: 05/20 20:20 Critical Care: Critical care not applicable. pc Disposition: 05/20/16 20:31 Transfer ordered to [facility]. Diagnosis are Chronic gout, Arthropathies in other specified diseases classified elsewhere, hand - bilateral hands at PIP joints, Osteomyelitis - suspected, left hand 2nd and 3rd PIP joints with subcutraneous air in distal forearm, Edema, unspecified - peripheral edema without CHF. - Reason for transfer: Higher level of care. - Accepting physician is Dr. Puga. - Condition is Stable. - Problem is new. - Symptoms are unchanged. HPI: 15:46 This 89 yrs old Female presents to ER via Walkin/Carried/Asstd with pc complaints of Leg Pain. 15:46 The history is obtained from the patient. She has developed multiple painful swollen pc joints, involving her hands and right knee, over the past week. Both legs have become very swollen since her diuretic was first discontinued and then restarted at half-dose a few weeks ago by her Fabric Worker Foreman. She denies any SOB, PND, orthopnea or chest pain. She has a history of gout, per her EMR, with recent uric level of 10.6, X-rays of her left hand confirming the same and being started on prednisone 4 weeks ago. The patient is a vague historian and could not relay this information. The patient has been recently seen by Dr. Rodriguez. 15:46 At their worst, the symptoms were severe. In the emergency department, the symptoms are pc unchanged. Historical: - Allergies: Morphine ("makes me crazy"); - Home Meds: 1. multivitamin Oral tab 1 tablet daily 2. Colace 100 mg oral cap 1 cap 2 times per day 3. furosemide 20 mg oral tab 0.5 tab once daily sun 2 tabs daily 4. benazepril 40 mg oral tab 1 tab once daily 5. atorvastatin 40 mg oral tab 1 tab once daily 6. ranitidine HCl 150 mg Oral tab 1 tab 2 times per day 7. Vitamin D Oral 90562 unit weekly 8. ICaps 3,336-9-454-75 xbbo-np-yr-unit oral TbER daily 9. spironolactone 25 mg Oral tab 0.5 tabs once daily 10. Azopt 1 % ophthalmic drps 1 drop twice a day 11. combigan 1 drop both eyes twice a day 12. Fish Oil 1,000 mg Oral cap twice a day 13. tramadol 50 mg Oral tab 1 tab Q 6 Hrs PRN 14. travatan 1 drop both eyes nightly 15. dorzolamide 2 % ophthalmic drop 1 drop twice a day 16. brimonidine 0.15 % ophthalmic drop 1 drop twice a day 17. Travatan Z 0.004 % ophthalmic drop 1 drop once daily nightly 18. timolol maleate 0.5 % Opht drpd 1 drop 2 times per day - PMHx: Arthritis; Atrial Fib; Diabetes - NIDDM: controlled; GERD; Glaucoma; Hypertension; Kidney stones; Gout; - PSHx: Cholecystectomy; Hysterectomy; Pacemaker Insertion; Back surgery; - The history from nurses notes was reviewed: but there are no nursing notes, or only partial notes available at the time of my charting. - Social history: Smoking status: Patient states was never smoker of tobacco. No barriers to communication noted, The patient speaks fluent Malawian, Speaks appropriately for age. - Family history: Not pertinent. - : The pt / caregiver states he / she is not on anticoagulants. Home medication list is obtained from the patient. - Hospitalizations: : No recent hospitalization is reported. - Exposure Risk Screening:: None identified. - Immunization history:: All immunizations up-to-date. - Social history:: the patient is a non-smoker, the patient does not drink alcohol. ROS: 15:46 All systems are negative except as listed. pc Exam: 15:46 General Appearance: alert, the patient is in moderate distress. pc 15:46 EENT: normal eye inspection, ears, nose and throat normal, pharynx normal, mucous membranes moist 15:46 Neck: The exam reveals no acute abnormalities. ROM is normal and painless. No nuchal rigidity is noted.. 15:46 Respiratory: no respiratory distress, normal breath sounds. 15:46 CVS: regular pulse rate, normal S1 and S2, no murmurs, strong peripheral pulses, irregularly irregular 15:46 Abdomen: soft, non-tender, no organomegaly, normal bowel sounds. 15:46 Back: normal inspection. 15:46 Skin: skin color is normal, warm, dry. 15:46 Extremities: grossly normal except: noted in the right leg and left le+ pitting edema to mid tibia , Joints: All joints are normal except the PIP of left little finger, PIP of left ring finger, PIP of left middle finger and PIP of left index finger displays pain at rest, painful range of motion, swelling, erythematous , the dorsal aspect of middle phalanx of right index finger and dorsal aspect of middle phalanx of right middle finger displays pain at rest, painful range of motion, swelling, erythematous , the right knee displays pain at rest, painful range of motion, swelling, erythema laterally. 15:46 Neuro: oriented x 3, cranial nerves normal as tested, no motor deficits, no sensory deficits. 15:46 Psych: normal mood. Vital Signs: 15:45 BP 136 / 110; Pulse 97; Resp 20; Pulse Ox 100% on R/A; Weight 68.04 kg / 150 lbs (R); pml Height 4 ft. 8 in. (142.24 cm); Pain 8/10; 15:51 Pulse 92 MON; Pulse Ox 97% ; pml 15:51 BP 169 / 77 (auto/); pml 16:06 Pulse 106 MON; Pulse Ox 96% ; pml 16:06 BP 168 / 72 (auto/); pml 16:09 Temp 98.8(O); pml 16:51 Pulse 88 MON; Pulse Ox 96% ; pml 16:51 BP 131 / 55 (auto/); pml 17:06 Pulse 94 MON; Pulse Ox 96% ; pml 17:06 BP 132 / 78 (auto/); pml 17:21 Pulse 88 MON; Pulse Ox 95% ; pml 17:21 BP 146 / 74 (auto/); pml 17:36 BP 163 / 73 (auto/); pml 17:36 Pulse 94 MON; Pulse Ox 96% ; pml 17:51 Pulse 98 MON; Pulse Ox 96% ; pml 17:51 BP 153 / 68 (auto/); pml 18:06 BP 150 / 68 (auto/); pml 18:06 Pulse 88 MON; pml 18:21 Pulse 84 MON; Pulse Ox 96% ; pml 18:21 BP 144 / 67 (auto/); pml 18:36 Pulse 78 MON; Pulse Ox 95% ; pml 18:36 BP 163 / 68 (auto/); pml 18:51 Pulse 78 MON; Pulse Ox 96% ; mlc 18:51 BP 174 / 76 (auto/); mlc 19:06 BP 162 / 65 (auto/); mlc 19:06 Pulse 82 MON; Pulse Ox 94% ; mlc 19:21 BP 161 / 72 (auto/); mlc 19:21 Pulse 90 MON; Pulse Ox 95% ; 19:36 BP 149 / 66 (auto/); jun 01:36 Pulse 84 MON; Pulse Ox 95% ; jun 01:51 BP 152 / 65 (auto/); jun 01:51 Pulse 82 MON; Pulse Ox 95% ; jun 02:06 BP 139 / 63 (auto/); jun 02:06 Pulse 84 MON; Pulse Ox 94% ; jun 02:21 BP 133 / 63 (auto/); jun 02:21 Pulse 84 MON; Pulse Ox 95% ; jun 02:36 BP 139 / 63 (auto/); jun 02:36 Pulse 86 MON; Pulse Ox 95% ; jun 02:51 BP 120 / 61 (auto/); jun 02:51 Pulse 86 MON; Pulse Ox 95% ; jun 03:21 BP 140 / 59 (auto/); jun 03:21 Pulse 82 MON; Pulse Ox 96% ; jun 03:36 BP 121 / 56 (auto/); jun 03:36 Pulse 78 MON; Resp 20 S; Temp 99.9(TE); Pulse Ox 96% ; jun 03:51 Pulse 74 MON; Pulse Ox 95% ; mlc 21:51 BP 114 / 53 (auto/); mlc 22:06 BP 127 / 61 (auto/); [facility] [place] 22:06 Pulse 74 MON; Pulse Ox 95% ; [facility] [place] 05/21 00:06 BP 142 / 65; Pulse 81; Resp 18; Temp 98.3; Pulse Ox 97% on R/A; Pain 5/10; mlc 05/20 15:45 Body Mass Index 33.63 (68.04 kg, 142.24 cm) pml MDM: 05/20 15:45 CBC with Diff Ordered. EDMS 15:45 MED Profile Ordered. EDMS 15:45 C Reactive Protein Ordered. EDMS 15:45 ESR Ordered. EDMS 15:45 Uric Acid Ordered. EDMS 15:46 Differential Diagnosis: polyarthropathy due to gout; peripheral edema; chronic AFib. pc Plan: labs, meds. 15:52 LIVER PROFILE Ordered. EDMS 15:52 BRAIN NATIURETIC PEPTIDE Ordered. EDMS 16:09 Ondansetron ODT Oral Disintegrating Tablet 4 mg PO once ordered. pc 16:09 morphine 2 mg Sub-Q once ordered. pc 16:13 Financial registration complete. [email or web address] 16:13 [facility] Payment Agreement was scanned into [employer] and attached to record. ks16 17:15 CBC with Diff Reviewed. pc 17:29 MED Profile Reviewed. pc 17:29 C Reactive Protein Reviewed. pc 17:29 LIVER PROFILE Reviewed. pc 17:29 BRAIN NATIURETIC PEPTIDE Reviewed. pc 17:29 Uric Acid Reviewed. pc 17:31 Hand, Complete Ordered. EDMS 17:31 traMADol 50 mg PO once ordered. pc 17:31 ESR Reviewed. pc 17:32 Knee, Complete Ordered. EDMS 17:32 Chest, 2 View (pa\\E\\lat) Ordered. EDMS 18:59 CBC with Diff Reviewed. pc 18:59 ESR Reviewed. pc 20:20 Data reviewed: old medical records, vital signs, nurses notes, lab test results, all pc radiology studies and available results. Test interpretation: LAB - all labs as ordered have been reviewed, interpreted and considered in the overall management of the clinical presentation; X-RAY - interpreted by Radiologist and personally reviewed, 1 view chest no acute disease, Hand Both extensive gouty arthropathy, worse at the left 2nd and 3rd PIP joints, with subcutaneous air in distal left forearm at the wrist, possible osteomyelitis . The patient has been re-examined and re-evaluated. The patient's symptoms have mildly improved after treatment. Physician consultation: Dr. Yosvany Mitchell regarding patient's condition, and he advises that the subcutaneous air and joint destruction, with corresponding labs, requires a hand surgeon consult for possible debridement and advises transfer to [facility]. 20:20 Physician consultation: Dr. Puga was contacted at 20:27, regarding patient's pc condition, and he accepts in transfer to [facility]. Disposition: The historical points, examination findings, and any diagnostic results supporting the provided diagnosis, were discussed with the patient or legal guardian. The decision to transfer to the patient to another facility was explained, based on the need for a required specialist that [facility] does not immediately have available. Administered Medications: 16:09 CANCELLED (Other Intervention Used): morphine 2 mg IVP once pc 16:09 CANCELLED (Other Intervention Used): Ondansetron 4 mg IVP once pc 16:25 Not Given (Patient Refused): morphine 2 mg Sub-Q once pml 16:26 Not Given (Patient Refused): Ondansetron ODT Oral Disintegrating Tablet 4 mg PO once pml 17:35 Drug: traMADol 50 mg [tramadol 50 mg tablet (1 tabs)] Route: PO; pml Signatures: Dispatcher [employer] EDMS Clayton Sinha MD MD pc Lucia Gaming RN RN pml Azalia Raines RN RN [facility] [place] Clare Keen, Reg Reg [email or web address] The chart was reviewed and I authenticate all verbal orders and agree with the evaluation and treatment provided.Corrections: (The following items were deleted from the chart) 15:52 15:47 LIVER PROFILE+LAB ordered. EDMS EDMS 15:52 15:47 B-Type NATIURETIC PEPTIDE+LAB ordered. EDMS EDMS 16:09 15:55 morphine 2 mg IVP once ordered. pc pc 16:09 15:55 Ondansetron 4 mg IVP once ordered. pc pc 16:26 15:45 Allergies: no known allergies; pml pml 16:31 15:44 IV Saline Lock ordered. pc pml Attachments: 16:13 [facility] [place] Payment Agreement [email or web address] Chart Complete MTDD
--- NOTE | 2016-05-23 12:07 | EDDOCDS ---
Nurse's Notes [facility] Name: Malu Castaneda Age: 89 yrs Sex: Female : 1925 Arrival Date: 05/20/2016 Time: 15:32 Bed 12 Private MD: Matthew Shelton A. Diagnosis: Chronic gout;Arthropathies in other specified diseases classified elsewhere, hand-bilateral hands at PIP joints;Osteomyelitis-suspected, left hand 2nd and 3rd PIP joints with subcutraneous air in distal forearm;Edema, unspecified-peripheral edema without CHF Presentation: 05/20 15:34 Presenting complaint: Presenting complaint: EMS states: increased swelling to fingers pml and feet over last few days. states MD Rodriguez took pt off of her eliquis and her fluid pill about 2 weeks ago. added back in half her fluid pill shortly thereafter. 15:42 Adult Sepsis Screening: The patient does not have new or worsening altered mentation. pml Patient's respiratory rate is less than 22. Systolic blood pressure is greater than 100. Patient has a qSOFA score of 1- Negative Sepsis Screen. Suicide/Homicide risk assessment- the patient denies having any suicidal and/or homicidal ideations and does not present with any other emotional, behavioral or mental health complaints. Status: Patient is not a supervisor home restoration service or dependent. Transition of care: patient was not received from another setting of care. 15:42 Acuity: [place] Level 3 pml 15:42 Method Of Arrival: Walkin/Carried/Asstd pml Triage Assessment: 15:45 General: Appears in no apparent distress, Behavior is appropriate for age, cooperative. pml Pain: Location: posterior aspect of right knee Pain currently is 8 out of 10 on a pain scale. The patient is triaged at the bedside. See Assessment in Nurses Notes section of ED record. Neurological: Level of Consciousness is awake, alert, Oriented to person, place, time. Cardiovascular: Capillary refill < 3 seconds. Cardiovascular: Rhythm is atrial fibrillation. Respiratory: Airway is patent Respiratory effort is even, unlabored. GI: Abdomen is non- distended. Derm: Skin is flushed, on dorsal aspect of middle phalanx of right index finger, dorsal aspect of middle phalanx of right middle finger, dorsal aspect of middle phalanx of left index finger, dorsal aspect of middle phalanx of left middle finger, dorsal aspect of middle phalanx of left ring finger and dorsal aspect of middle phalanx of left little finger Skin temperature is warm on right hand and left hand Swollen area noted that is + 2 pitting edema bilateral lower extremities below knee. non pitting edema at bilateral distal fingers near joints. Historical: - Allergies: Morphine ("makes me crazy"); - Home Meds: 1. multivitamin Oral tab 1 tablet daily 2. Colace 100 mg oral cap 1 cap 2 times per day 3. furosemide 20 mg oral tab 0.5 tab once daily sun 2 tabs daily 4. benazepril 40 mg oral tab 1 tab once daily 5. atorvastatin 40 mg oral tab 1 tab once daily 6. ranitidine HCl 150 mg Oral tab 1 tab 2 times per day 7. Vitamin D Oral 77220 unit weekly 8. ICaps [id number] tcnf-en-sx-unit oral TbER daily 9. spironolactone 25 mg Oral tab 0.5 tabs once daily 10. Azopt 1 % ophthalmic drps 1 drop twice a day 11. combigan 1 drop both eyes twice a day 12. Fish Oil 1,000 mg Oral cap twice a day 13. tramadol 50 mg Oral tab 1 tab Q 6 Hrs PRN 14. travatan 1 drop both eyes nightly 15. dorzolamide 2 % ophthalmic drop 1 drop twice a day 16. brimonidine 0.15 % ophthalmic drop 1 drop twice a day 17. Travatan Z 0.004 % ophthalmic drop 1 drop once daily nightly 18. timolol maleate 0.5 % Opht drpd 1 drop 2 times per day - PMHx: Arthritis; Atrial Fib; Diabetes - NIDDM: controlled; GERD; Glaucoma; Hypertension; Kidney stones; Gout; - PSHx: Cholecystectomy; Hysterectomy; Pacemaker Insertion; Back surgery; - The history from nurses notes was reviewed: but there are no nursing notes, or only partial notes available at the time of my charting. - Social history: Smoking status: Patient states was never smoker of tobacco. No barriers to communication noted, The patient speaks fluent Amharic, Speaks appropriately for age. - Family history: Not pertinent. - : The pt / caregiver states he / she is not on anticoagulants. Home medication list is obtained from the patient. - Hospitalizations: : No recent hospitalization is reported. - Exposure Risk Screening:: None identified. - Immunization history:: All immunizations up-to-date. - Social history:: the patient is a non-smoker, the patient does not drink alcohol. Screenin:48 Screening information is obtained from the patient. Fall risk: No risks identified. pml Assistance ADL's: requires no assistance with activities of daily living. Abuse/DV Screen: The patient / caregiver reports he/she is: not in a situation that causes fear, pain or injury. Nutritional screening: No deficits noted. Advance Directives: Currently, there is no health care proxy. home support is adequate. Assessment: 15:48 General: see triage note. pml 16:32 General: Appears in no apparent distress, Behavior is appropriate for age, cooperative. pml Pain: Location: right knee. Neurological: Level of Consciousness is awake, alert, Oriented to person, place, time. Cardiovascular: Capillary refill < 3 seconds. Respiratory: Airway is patent Respiratory effort is even, unlabored. Derm: Skin is pink, warm & dry. 17:00 Adult Sepsis Screening: The patient does not have new or worsening altered mentation. pml Patient's respiratory rate is less than 22. Systolic blood pressure is greater than 100. Patient has a qSOFA score of 0- Negative Sepsis Screen. 17:35 General: resting on stretcher, resps easy and unlabored, skin p/w/d. swelling and pml redness remains unchanged from prior documentation. atrial fib on monitor in 80s. family at bedside. medicated for leg pain 12/21. 18:43 General: Appears in no apparent distress, Behavior is appropriate for age, cooperative. pml Pain: Location: right knee. Neurological: Level of Consciousness is awake, alert, Oriented to person, place, time. Cardiovascular: Capillary refill < 3 seconds. Respiratory: Airway is patent Respiratory effort is even, unlabored. Derm: Skin is pink, warm & dry. 19:25 General: Appears in no apparent distress, comfortable, Behavior is cooperative. mlc Neurological: Level of Consciousness is awake, alert, Oriented to person, place, time. Cardiovascular: Edema is 2+ to left foot, left toes, right foot and right toes. Respiratory: Airway is patent Respiratory effort is even, unlabored, Respiratory pattern is regular. Derm: Skin is red, on right hand and left hand. 20:44 Reassessment: Patient appears in no apparent distress at this time. pt offers no mlc complaints. pt taking own medication per Dr. Sinha. . 21:49 General: Appears in no apparent distress, comfortable, Behavior is cooperative, joy pleasant. Neurological: Level of Consciousness is awake, alert, obeys commands, Oriented to person, place, time, Speech is normal. Cardiovascular: Heart tones S1 S2 present. Respiratory: No deficits noted. Airway is patent Respiratory effort is even, unlabored, Respiratory pattern is regular, symmetrical. Derm: Skin is pink, warm & dry. 22:12 Reassessment: Patient appears in no apparent distress at this time. no changes since mlc prior. resp easy/unlabored. family at bedside. 22:59 General: Appears in no apparent distress, comfortable, to be sleeping. awakens easily. mlc Neurological: Level of Consciousness is awake, alert, Oriented to person, place, time. Respiratory: Airway is patent Respiratory effort is even, unlabored, Respiratory pattern is regular. 05/21 00:06 General: Appears in no apparent distress, comfortable, Behavior is cooperative. mlc General: Family at bedside. pt offers no complaints. . Pain: Pain currently is 5 out of 10 on a pain scale. Neurological: Level of Consciousness is awake, alert, Oriented to person, place, time. Respiratory: Airway is patent Respiratory effort is even, unlabored, Respiratory pattern is regular. Vital Signs: 05/20 15:45 BP 136 / 110; Pulse 97; Resp 20; Pulse Ox 100% on R/A; Weight 68.04 kg (R); Height 4 pml ft. 8 in. (142.24 cm); Pain 8/10; 15:51 Pulse 92 MON; Pulse Ox 97% ; pml 15:51 BP 169 / 77 (auto/); pml 16:06 Pulse 106 MON; Pulse Ox 96% ; pml 16:06 BP 168 / 72 (auto/); pml 16:09 Temp 98.8(O); pml 16:51 Pulse 88 MON; Pulse Ox 96% ; pml 16:51 BP 131 / 55 (auto/); pml 17:06 Pulse 94 MON; Pulse Ox 96% ; pml 17:06 BP 132 / 78 (auto/); pml 17:21 Pulse 88 MON; Pulse Ox 95% ; pml 17:21 BP 146 / 74 (auto/); pml 17:36 BP 163 / 73 (auto/); pml 17:36 Pulse 94 MON; Pulse Ox 96% ; pml 17:51 Pulse 98 MON; Pulse Ox 96% ; pml 17:51 BP 153 / 68 (auto/); pml 18:06 BP 150 / 68 (auto/); pml 18:06 Pulse 88 MON; pml 18:21 Pulse 84 MON; Pulse Ox 96% ; pml 18:21 BP 144 / 67 (auto/); pml 18:36 Pulse 78 MON; Pulse Ox 95% ; pml 18:36 BP 163 / 68 (auto/); pml 18:51 Pulse 78 MON; Pulse Ox 96% ; mlc 18:51 BP 174 / 76 (auto/); mlc 19:06 BP 162 / 65 (auto/); mlc 19:06 Pulse 82 MON; Pulse Ox 94% ; mlc 19:21 BP 161 / 72 (auto/); mlc 19:21 Pulse 90 MON; Pulse Ox 95% ; mlc 19:36 BP 149 / 66 (auto/); jun 01:36 Pulse 84 MON; Pulse Ox 95% ; jun 01:51 BP 152 / 65 (auto/); jun 01:51 Pulse 82 MON; Pulse Ox 95% ; jun 02:06 BP 139 / 63 (auto/); jun 02:06 Pulse 84 MON; Pulse Ox 94% ; jun 02:21 BP 133 / 63 (auto/); jun 02:21 Pulse 84 MON; Pulse Ox 95% ; jun 02:36 BP 139 / 63 (auto/); jun 02:36 Pulse 86 MON; Pulse Ox 95% ; jun 02:51 BP 120 / 61 (auto/); jun 02:51 Pulse 86 MON; Pulse Ox 95% ; jun 03:21 BP 140 / 59 (auto/); jun 03:21 Pulse 82 MON; Pulse Ox 96% ; jun 03:36 BP 121 / 56 (auto/); jun 03:36 Pulse 78 MON; Resp 20 S; Temp 99.9(TE); Pulse Ox 96% ; jun 03:51 Pulse 74 MON; Pulse Ox 95% ; mlc :51 BP 114 / 53 (auto/); mlc 22:06 BP 127 / 61 (auto/); mlc :06 Pulse 74 MON; Pulse Ox 95% ; mlc 05/21 00:06 BP 142 / 65; Pulse 81; Resp 18; Temp 98.3; Pulse Ox 97% on R/A; Pain 5/10; mlc 05/20 15:45 Body Mass Index 33.63 (68.04 kg, 142.24 cm) pml Vitals: 05/20 15:45 Log In Time N/A - ambulance arrival. pml ED Course: 15:32 Patient visited by Renuka Rucker PCA. ar3 15:32 Lucia Gaming,ROCHELLE is Primary Nurse. ar3 15:32 Matthew Shelton is Private Physician. ar3 15:32 Patient moved to Waiting ar3 15:32 Patient moved to 12 ar3 15:38 Clayton Sinha MD is Attending Physician. pc 15:41 Patient visited by Clayton Sinha MD. pc 15:44 Triage Initiated pml 15:48 The patient / caregiver is instructed regarding the plan of care and ED course. Patient pml has correct armband on for positive identification. Placed in gown. Bed in low position. Call light in reach. Side rails up X2. hotel service supervisor on. Pulse ox on. NIBP on. 16:13 [facility] Payment Agreement was scanned into Strut and attached to record. [id number] 16:32 Patient visited by Lucia Gaming RN. pml 17:33 Patient visited by Clayton Sinha MD. pc 17:37 Patient visited by Lucia Gaming RN. pml 18:07 Patient visited by Lidya Mims PCA. ct3 18:44 Patient visited by Luica Gaming RN. pml 19:06 Patient visited by Justin Rodriguez PCA. kb5 19:06 Azalia Raines RN is Primary Nurse. mlc 19:17 Hand, Complete Returned. EDMS 19:28 Patient visited by Azalia Raines RN. mlc 20:04 Primary Nurse role handed off by Lucia Gaming,ROCHELLE jmv 20:49 Patient visited by Azalia Raines RN. mlc 22:03 Patient visited by Justin Rodriguez PCA. kb5 22:13 Patient visited by Azalia Raines RN. mlc 23:00 No IV's were initiated during this patient's visit. No procedures done that require mlc assistance. 05/21 07:03 Knee, Complete Returned. EDMS 07:56 Chest, 2 View (pa\\E\\lat) Returned. EDMS Administered Medications: 05/20 16:09 CANCELLED (Other Intervention Used): morphine 2 mg IVP once pc 16:09 CANCELLED (Other Intervention Used): Ondansetron 4 mg IVP once pc 16:25 Not Given (Patient Refused): morphine 2 mg Sub-Q once pml 16:26 Not Given (Patient Refused): Ondansetron ODT Oral Disintegrating Tablet 4 mg PO once pml 17:35 Drug: traMADol 50 mg [tramadol 50 mg tablet (1 tabs)] Route: PO; pml Order Results: Lab Order: CBC with Diff; SPEC'M 05/20/16 16:34 Test: WHITE BLOOD COUNT; Value: 13.0; Range: 4.0-10.0; Abnormal: Above high normal; Units: K/mm3; Status: F Test: RED BLOOD COUNT; Value: 4.31; Range: 4.00-5.40; Units: M/mm3; Status: F Test: HEMOGLOBIN; Value: 12.3; Range: 12.0-16.0; Units: g/dl; Status: F Test: HEMATOCRIT; Value: 37.8; Range: 36.0-47.0; Units: %; Status: F Test: MEAN CORPUSCULAR VOLUME; Value: 87.7; Range: 80.0-96.0; Units: fl; Status: F Test: MEAN CORPUSCULAR HEMOGLOBIN; Value: 28.6; Range: 27.0-33.0; Units: pg; Status: F Test: MEAN CORPUSCULAR HGB CONC; Value: 32.5; Range: 32.0-36.5; Units: g/dl; Status: F Test: RED CELL DISTRIBUTION WIDTH; Value: 12.7; Range: 11.5-14.5; Units: %; Status: F Test: PLATELET COUNT, AUTOMATED; Value: 343; Range: 150-450; Units: k/mm3; Status: F Test: NEUTROPHILS %; Value: 84.0; Range: 36.0-66.0; Abnormal: Above high normal; Units: %; Status: F Test: LYMPH %; Value: 4.9; Range: 24.0-44.0; Abnormal: Below low normal; Units: %; Status: F Test: MONO %; Value: 8.5; Range: 0.0-5.0; Abnormal: Above high normal; Units: %; Status: F Test: EOS %; Value: 0.4; Range: 0.0-3.0; Units: %; Status: F Test: BASO %; Value: 0.2; Range: 0.0-1.0; Units: %; Status: F Test: LARGE UNSTAINED CELL %; Value: 2.1; Range: 0.0-4.0; Units: %; Status: F Test: NEUTROPHILS #; Value: 11.0; Range: 1.8-7.7; Abnormal: Above high normal; Units: K/mm3; Status: F Test: LYMPH #; Value: 0.6; Range: 1.5-4.5; Abnormal: Below low normal; Units: K/mm3; Status: F Test: MONO #; Value: 1.1; Range: 0.0-0.8; Abnormal: Above high normal; Units: K/mm3; Status: F Test: EOS #; Value: 0.0; Range: 0.0-0.50; Units: K/mm3; Status: F Test: BASO #; Value: 0.0; Range: 0.0-0.2; Units: K/mm3; Status: F Test: LARGE UNSTAINED CELL #; Value: 0.3; Range: 0.0-0.4; Units: K/mm3; Status: F Lab Order: [facility]; [facility]' 05/20/16 16:34 Test: GLUCOSE, FASTING; Value: 140; Range: 83-110; Abnormal: Above high normal; Units: MG/DL; Status: F Test: BLOOD UREA NITROGEN; Value: 17; Range: 7-18; Units: MG/DL; Status: F Test: CREATININE FOR GFR; Value: 0.71; Range: 0.55-1.02; Units: MG/DL; Status: F Test: GLOMERULAR FILTRATION RATE; Value: > 60.0; Range: >32; Status: F Test: SODIUM LEVEL; Value: 141; Range: 136-145; Units: MEQ/L; Status: F Test: POTASSIUM SERUM; Value: 4.2; Range: 3.5-5.1; Units: MEQ/L; Status: F Test: CHLORIDE LEVEL; Value: 108; Range: 98-107; Abnormal: Above high normal; Units: MEQ/L; Status: F Test: CARBON DIOXIDE LEVEL; Value: 23; Range: 21-32; Units: MEQ/L; Status: F Test: ANION GAP; Value: 10; Range: 8-16; Units: MEQ/L; Status: F Test: CALCIUM LEVEL; Value: 10.4; Range: 8.8-10.2; Abnormal: Above high normal; Units: MG/DL; Status: F Test Note: ; Units are mL/min/1.73 m2 Chronic Kidney Disease Staging per NKF: Stage I & II GFR >=60 Normal to Mildly Decreased Stage III GFR 30-59 Moderately Decreased Stage IV GFR 15-29 Severely Decreased Stage V GFR <15 Very Little GFR Left ESRD GFR <15 on BRACELET [employer]ELTY Lab Order: C Reactive Protein; [facility]' 05/20/16 16:34 Test: C REACTIVE PROTEIN QUANTITATIV; Value: 17.00; Range: 0.00-0.30; Abnormal: Above high normal; Units: MG/DL; Status: F Lab Order: ESR; [facility]' 05/20/16 16:34 Test: ERYTHROCYTE SEDIMENTATION RATE; Value: 66; Range: 0-42; Abnormal: Above high normal; Units: mm/hr; Status: F Lab Order: Uric Acid; [facility] 05/20/16 16:34 Test: URIC ACID; Value: 5.9; Range: 2.6-6.0; Units: MG/DL; Status: F Lab Order: LIVER PROFILE; [facility] 05/20/16 16:34 Test: AST/SGOT; Value: 24; Range: 15-37; Units: U/L; Status: F Test: ALT/SGPT; Value: 29; Range: 12-78; Units: U/L; Status: F Test: ALKALINE PHOSPHATASE; Value: 184; Range: 45-117; Abnormal: Above high normal; Units: U/L; Status: F Test: BILIRUBIN,TOTAL; Value: 0.8; Range: 0.2-1.0; Units: MG/DL; Status: F Test: BILIRUBIN,DIRECT; Value: 0.3; Range: 0.0-0.2; Abnormal: Above high normal; Units: MG/DL; Status: F Test: TOTAL PROTEIN; Value: 6.4; Range: 6.4-8.2; Units: GM/DL; Status: F Test: ALBUMIN; Value: 2.9; Range: 3.2-5.2; Abnormal: Below low normal; Units: GM/DL; Status: F Test: ALBUMIN/GLOBULIN RATIO; Value: 0.83; Range: 1.00-1.93; Abnormal: Below low normal; Status: F Lab Order: BRAIN NATIURETIC PEPTIDE; SPEC'M 05/20/16 16:34 Test: BRAIN NATRIURETIC PEPTIDE; Value: 457; Range: <100; Abnormal: Above high normal; Units: PG/ML; Status: F Radiology Order: Hand, Complete Test: Hand, Complete REASON FOR EXAMINATION: Deformity/Swelling; ; CLINICAL HISTORY: Hand pain.; COMMENTS:; The bones are diffusely osteopenic.; Moderate to severe degenerative changes are present at all bilateral PIP and DIP joints.; Severe soft tissue swelling is present adjacent to the second LEFT proximal and middle phalanx. Dest; ructive changes are noted at the second LEFT PIP joint. This may represent osteomyelitis and septic; arthritis. Clinical correlation is recommended.; There is no evidence of acute fracture or dislocation.; IMPRESSION:; Severe soft tissue swelling is present adjacent to the second LEFT proximal and middle phalanx. Dest; ructive changes are noted at the second LEFT PIP joint. This may represent osteomyelitis and septic; arthritis. Clinical correlation is recommended.; The bones are diffusely osteopenic.; Moderate to severe degenerative changes are present at all bilateral PIP and DIP joints.; ; ; Radiology Order: Knee, Complete Test: Knee, Complete REASON FOR EXAMINATION: Deformity/Swelling; Right knee series: Five views.; ; History: Deformity and swelling.; ; Findings: There is advanced three compartment osteoarthritis. Diffuse; osteoporosis is noted. Chondrocalcinosis is seen medially and laterally. There; is fullness in the suprapatellar bursa suggestive of a joint effusion. No; fracture is seen.; ; Impression:; ; Diffuse osteoporosis. Advanced osteoarthritis. Joint effusion. No fracture or; other acute bony abnormality visible.; ; ; Signed by; Arian Hartmann MD 05/21/2016 07:36 A; Radiology Order: Chest, 2 View (pa\\E\\lat) Test: Chest, 2 View (pa\\E\\lat) REASON FOR EXAMINATION: chf; Chest x-ray: Two views.; ; History: CHF. Comparison chest x-ray July 22, 2015.; ; Findings: A unipolar pacemaker remains in the right heart via the left; subclavian region. Lumbar spine fusion hardware is seen along with clips in the; right upper quadrant. EKG electrodes are noted. Mildly prominent heart is seen; as before. No infiltrate or effusion is noted today. Pulmonary vasculature is; not increased. The frontal radiograph is somewhat overexposed.; ; Impression:; ; Mild cardiomegaly with pacemaker. Otherwise no acute disease.; ; ; Signed by; Arian Hartmann MD 05/21/2016 07:37 A; Outcome: 20:31 ER care complete, transfer ordered by Provider. 21:46 Admission hand-off: Report called to Maureen Kramer RN [facility] ED. jun 05: No special radiology studies were completed. [facility] 23:00 Discharge Assessment: patient administered narcotics - yes. Patient was admitted to the [facility] or transferred to another facility. The following High Risk Discharge criteria are identified: None. Transferred to [facility]. 05/21 00:06 Transferred by EMS ground [facility] ambulance report to accompanying personnel TShemar Diaz, EMT and Jethro Andrews EMT. Condition: stable. Property :Personal belongings accompany Pt. 00:10 Patient left the ED. [facility] Signatures: Dispatcher [employer] Clayton Tineo MD MD pc Newman, Jill New, RN RN jan Bancroft, Kristopher, SEMICONDUCTOR TESTING GROUP LEADER SEMICONDUCTOR TESTING GROUP LEADER kb5 Renuka Rucker, SEMICONDUCTOR TESTING GROUP LEADER SEMICONDUCTOR TESTING GROUP LEADER ar3 Lidya Mims, SEMICONDUCTOR TESTING GROUP LEADER SEMICONDUCTOR TESTING GROUP LEADER ct3 Lucia Gaming RN RN pml Booth, Mandy, RN RN mlc Sorenson, Kimberly, Reg Reg [id number] Saran Ward, SEMICONDUCTOR TESTING GROUP LEADER SEMICONDUCTOR TESTING GROUP LEADER jmv Corrections: (The following items were deleted from the chart) 05/20 15:44 15:34 Presenting complaint: pml pml 16:26 15:45 Allergies: no known allergies; pml pml Chart Complete MTDD
== END 2016-05-21 00:10 | disposition short-term general hospital (02) ==
LOC: M ED 15:32
DX: M1A.00X0 Idiopathic chronic gout, unspecified site, without tophus (tophi) (principal); R60.9 Edema, unspecified; M14.84 Arthropathies in other specified diseases classified elsewhere, hand; M14.841 Arthropathies in other specified diseases classified elsewhere, right hand; I10 Essential (primary) hypertension; E11.9 Type 2 diabetes mellitus without complications; M19.90 Unspecified osteoarthritis, unspecified site; I48.91 Unspecified atrial fibrillation; K21.9 Gastro-esophageal reflux disease without esophagitis; H40.9 Unspecified glaucoma; Z87.442 Personal history of urinary calculi; Z79.899 Other long term (current) drug therapy; Z88.5 Allergy status to narcotic agent

== ENCOUNTER → 2016-07-12 | Outpatient (CLI) | payer MEDICARE ==
[2016-07-12 11:27] LABS: ALBUMIN 3.3 GM/DL (3.2-5.2); ANION GAP 8 MEQ/L (8-16); BLOOD UREA NITROGEN 25 MG/DL (7-18); CALCIUM LEVEL 10.5 MG/DL (8.8-10.2); CARBON DIOXIDE LEVEL 26 MEQ/L (21-32); CHLORIDE LEVEL 109 MEQ/L (98-107); CREATININE FOR GFR 0.93 MG/DL (0.55-1.02); GLOMERULAR FILTRATION RATE > 60.0 (>32); GLUCOSE, FASTING 98 MG/DL (83-110); PHOSPHORUS LEVEL 2.5 MG/DL (2.5-4.9); POTASSIUM SERUM 3.8 MEQ/L (3.5-5.1); SODIUM LEVEL 143 MEQ/L (136-145)
== END ==
LOC: M LAB 09:52
PROVIDERS: ATTEND Internal Medicine Cardiovascular Disease
DX: I50.32 Chronic diastolic (congestive) heart failure (principal); E83.52 Hypercalcemia

== ENCOUNTER → 2016-12-25 | Outpatient (CLI) | payer MEDICARE ==
[~2016-12-25] MED LIST changes: -ATOR40TA PO; +ATOR40TA75 PO
[2016-12-25 09:38] LABS: ALBUMIN 3.6 GM/DL (3.2-5.2); CALCIUM LEVEL 10.8 MG/DL (8.8-10.2); CREATININE FOR GFR 1.1 MG/DL (0.55-1.02); GLOMERULAR FILTRATION RATE 49.8 (>32); MAGNESIUM LEVEL 2.4 MG/DL (1.8-2.4); PHOSPHORUS LEVEL 2.6 MG/DL (2.5-4.9); POTASSIUM SERUM 4.6 MEQ/L (3.5-5.1)
== END ==
LOC: M LAB 08:16
PROVIDERS: ATTEND Internal Medicine Cardiovascular Disease
DX: I50.32 Chronic diastolic (congestive) heart failure (principal)

== ENCOUNTER → 2017-04-20 | Outpatient (CLI) | payer MEDICARE ==
[2017-04-20 14:32] LABS: ALBUMIN 3.8 GM/DL (3.2-5.2); CREATININE FOR GFR 1.14 MG/DL (0.55-1.02); GLOMERULAR FILTRATION RATE 47.8 (>32); PHOSPHORUS LEVEL 2.1 MG/DL (2.5-4.9); POTASSIUM SERUM 4.7 MEQ/L (3.5-5.1)
== END ==
LOC: M LAB 13:39
PROVIDERS: ATTEND Internal Medicine Cardiovascular Disease
DX: N19 Unspecified kidney failure (principal); I50.32 Chronic diastolic (congestive) heart failure

== ENCOUNTER → 2017-05-17 | Outpatient (REF) | payer MEDICARE ==
[2017-05-17 19:46] LABS: TOTAL PROTEIN,RANDOM URINE 9.9 MG/DL (0.0-12.0)
== END ==
LOC: M LAB REF 16:50
DX: N18.3 Chronic kidney disease, stage 3 (moderate) (principal)
CPT/HCPCS: 84156

== ENCOUNTER → 2017-05-24 | Outpatient (CLI) | payer MEDICARE | LOC: M RAD 09:08 | DX: N18.3 Chronic kidney disease, stage 3 (moderate) (principal); R31.29 Other microscopic hematuria; E21.0 Primary hyperparathyroidism; N20.0 Calculus of kidney | CPT/HCPCS: 78070 ==

== ENCOUNTER → 2017-07-25 | Outpatient (CLI) | payer MEDICARE ==
[2017-07-25 10:24] LABS: BASO # 0.1 10^3/uL (0.0-0.2); BASO % 0.7 % (0.0-1.0); EOS # 0.3 10^3/uL (0.0-0.50); EOS % 3.8 % (0.0-3.0); HEMATOCRIT 43.6 % (36.0-47.0); HEMOGLOBIN 13.9 g/dl (12.0-16.0); IMMATURE GRANULOCYTE % 0.4 % (0-3.0); LYMPH # 1.4 10^3/uL (1.5-4.5); LYMPH % 17.8 % (24.0-44.0); MEAN CORPUSCULAR HEMOGLOBIN 28.3 pg (27.0-33.0); MEAN CORPUSCULAR HGB CONC 31.9 g/dl (32.0-36.5); MEAN CORPUSCULAR VOLUME 88.6 fl (80.0-96.0); MONO # 0.6 10^3/uL (0.0-0.8); MONO % 7.8 % (0.0-5.0); NEUTROPHILS # 5.3 10^3/uL (1.8-7.7); NEUTROPHILS % 69.5 % (36.0-66.0); PLATELET COUNT, AUTOMATED 211 10^3/uL (150-450); RED BLOOD COUNT 4.92 10^6/uL (4.00-5.40); RED CELL DISTRIBUTION WIDTH 13.8 % (11.5-14.5); WHITE BLOOD COUNT 7.6 10^3/uL (4.0-10.0)
[2017-07-25 10:52] LABS: ALBUMIN 3.9 GM/DL (3.2-5.2); ALBUMIN/GLOBULIN RATIO 1.34 (1.00-1.93); ALKALINE PHOSPHATASE 173 U/L (45-117); ALT/SGPT 17 U/L (12-78); ANION GAP 6 MEQ/L (8-16); AST/SGOT 16 U/L (7-37); BILIRUBIN,TOTAL 0.7 MG/DL (0.2-1.0); BLOOD UREA NITROGEN 32 MG/DL (7-18); CARBON DIOXIDE LEVEL 27 MEQ/L (21-32); CHLORIDE LEVEL 109 MEQ/L (98-107); CHOLESTEROL LEVEL 126 MG/DL (<200); CHOLESTEROL RISK RATIO 3.937 (<5); GLOMERULAR FILTRATION RATE 49.8 (>32); GLUCOSE, FASTING 120 MG/DL (70-100); HDL CHOLESTEROL 32 MG/DL (>40); LDL CHOLESTEROL 48.8 MG/DL (<100); NON-HDL-C 94 MG/DL; POTASSIUM SERUM 4.4 MEQ/L (3.5-5.1); SODIUM LEVEL 142 MEQ/L (136-145); TOTAL PROTEIN 6.8 GM/DL (6.4-8.2); TRIGLYCERIDES LEVEL 226 MG/DL (<150); URIC ACID 6.3 MG/DL (2.6-6.0)
[2017-07-25 11:05] LABS: ESTIMATED AVERAGE GLUCOSE 140 MG/DL (60-110); HEMOGLOBIN A1c 6.5 %
== END ==
LOC: M LAB 09:29
DX: E11.9 Type 2 diabetes mellitus without complications (principal)
CPT/HCPCS: 84550